=== PATIENT | male | born 1970 | race Caucasian/White ===

== ENCOUNTER 2022-12-10 09:25 | Day surgery (SDC) | payer MEDICARE ==
[2022-12-06 15:35] VITALS: BMI 22.9
[~2022-12-10 09:25] MED LIST: LACTATED RINGERS 1,000 ML IV SCH; LIDOCAINE 1% (10MG/ML) FOR IV START INTRADERMA PRN; ONDANSETRON 4 MG/2 ML VIAL IVP PRN
[2022-12-10 09:47] VITALS: RESP 16; TEMP 98
[2022-12-10] MEDS ORDERED: LIDOCAINE 2% INJ 20 MG/ML (2 ML VIAL) ONE (10:17)
[2022-12-10] MEDS ORDERED: PROPOFOL 10 MG/ML 20 ML VIAL IV ONE (10:17)
--- NOTE | 2022-12-10 10:36 | P.PCN ---
Date of Procedure: 12/10/22 Procedure(s) Performed: Brief history: Patient is a pleasant 52-year-old white male scheduled for an elective upper endoscopy as well as colonoscopy as a part of evaluation of intermittent dysphagia to solids and a history of colon polyps. Procedure performed: Esophagogastroduodenoscopy with biopsy Colonoscopy with biopsy Preoperative diagnosis: Intermittent dysphagia to solids and liquids of 2 years duration History of colon polyps Anesthesia: MAC Procedure: After informed consent was obtained from the patient was brought into the endoscopy unit and IV sedation was administered by anesthesia under continuous monitoring. Initially upper endoscopy was done. The Olympus GF 160 video endoscope was inserted inserted into the mouth and esophagus intubated without any difficulty and was gradually advanced into the stomach and duodenum and carefully examined. The bulb and second part of the duodenum appeared normal. The scope was then withdrawn into the stomach adequately insufflated with air and upon careful examination the antrum had mild gastritis and biopsies were done from this area. Mucosa of the body, cardia and fundus appeared normal. The scope was then withdrawn into the esophagus. The GE junction was located at 40 cm to the incisors. It appeared regular with no erythema erosions or ulcerations. There was no evidence of esophageal stricture. Multiple biopsies were done from the mid and distal esophagus to rule out years of age esophagitis. Rest of the esophagus appeared normal. Patient tolerated the procedure well. At this time the patient continued to remain sedation. Initial digital rectal examination was normal. Olympus CF 160 video colonoscope was then inserted into the rectum and gradually advanced to the cecum without any difficulty. Careful examination was performed as the scope was gradually being withdrawn. The prep was excellent. The cecum had a 5 mm superficial ulceration which was biopsied. Mucosa of the, ascending colon, transverse colon, descending colon, sigmoid colon and rectum appeared normal. Retroflexion was performed in the rectum and small internal hemorrhoids were noted. Patient tolerated the procedure well. Impression: 1. Upper endoscopy revealed mild antral gastritis and small hiatal mild hernia. No evidence of esophageal stricture but possibility of esophageal dysmotility could not be excluded 2. Colonoscopy revealed the 5-6 mm superficial cecal ulcer status post biopsy and small internal hemorrhoids Recommendations: Findings of this examination were discussed with the patient as well as a family. She was advised to follow with the biopsy results. Recommend repeat screening colonoscopy in 10 years. He'll be seen in office in 2 weeks. He still continues to have persistent dysphagia he will be scheduled for esophageal manometry to evaluate for esophageal motility disorder.
[2022-12-10 11:08] VITALS: PULSE 61
[2022-12-10 11:12] VITALS: BP 118/74
== END 2022-12-10 11:30 | disposition home or self-care (01) ==
LOC: ORWHC2ENDO 09:25
PROVIDERS: ATTEND Internal Medicine Gastroenterology
DX: Z12.11 Encounter for screening for malignant neoplasm of colon (principal); K29.50 Unspecified chronic gastritis without bleeding; K20.90 Esophagitis, unspecified without bleeding; K44.9 Diaphragmatic hernia without obstruction or gangrene; I10 Essential (primary) hypertension; E78.5 Hyperlipidemia, unspecified; J44.9 Chronic obstructive pulmonary disease, unspecified; F17.200 Nicotine dependence, unspecified, uncomplicated; F12.10 Cannabis abuse, uncomplicated; Z79.899 Other long term (current) drug therapy; K64.0 First degree hemorrhoids
CPT/HCPCS: 45380; 88305; 43239; J2704; J2001

== ENCOUNTER → 2023-02-07 | Day surgery (SDC) | payer MEDICARE ==
[2023-02-02 10:33] VITALS: BMI 22.2
[2023-02-07 10:40] VITALS: BP 132/73; PULSE 67; RESP 16; TEMP 97.3
== END ==
LOC: ORWHC2ENDO 10:21
PROVIDERS: ATTEND Internal Medicine Gastroenterology
DX: R13.19 Other dysphagia (principal)
CPT/HCPCS: 91010

== ENCOUNTER → 2024-11-15 | Outpatient (CLI) | payer MEDICARE ==
--- NOTE | 2024-11-15 14:21 | XR ---
EXAMINATION TYPE: XR chest 2V DATE OF EXAM: 11/15/2024 2:10 PM COMPARISON: None TECHNIQUE: XR chest 2V Frontal and lateral views of the chest. CLINICAL INDICATION:Male, 54 years old with history of Z18.10 Retained metal fragments MRI CLEARANCE; FINDINGS: Lungs/Pleura: There is no evidence of pleural effusion, focal consolidation, or pneumothorax. Pulmonary vascularity: Unremarkable. Heart/mediastinum: Cardiomediastinal silhouette is unremarkable. Musculoskeletal: No acute osseous pathology. Partial visualization of cervical fusion hardware. There is a 6 mm BB shaped metallic foreign body overlying the left humeral head. Additional 2 mm radiopaqu e foreign body within the right anterior chest wall soft tissues. IMPRESSION: 1. No acute cardiopulmonary disease/process. 2. Couple of small radiopaque foreign bodies identified within the right anterior chest wall soft ti ssues and left humeral head. Additional partially visualized cervical fusion hardware. Patient should be cleared for MRI with metal precautions. [facility], , 11/15/2024 2:19 PM
== END | disposition home or self-care (01) ==
LOC: RADXRMAIN 10:55
PROVIDERS: ATTEND Family Medicine
DX: Z18.10 Retained metal fragments, unspecified (principal)
CPT/HCPCS: 71046

== ENCOUNTER → 2024-11-19 | Outpatient (CLI) | payer MEDICARE ==
--- NOTE | 2024-11-19 09:26 | MR ---
EXAMINATION TYPE: MR lumbar spine wo con DATE OF EXAM: 11/19/2024 7:15 AM COMPARISON: None. CLINICAL INDICATION: Male, 54 years old with history of M47.816 [place], M51.369, M54.16, Lower casi k pain, RLE radiculopathy. TECHNIQUE: Multiplanar, multisequence images of the lumbar spine were acquired without IV contrast. FINDINGS: Vertebral body heights are preserved. There is heterogeneous marrow signal suggesting red marrow hyperplasia. Prominent endplate Schmorl's nodes at L1-L2 with associated marrow edema. There is prominent endplate edema also at L4-L5 related to severe degenerative disc disease. Addition ally towards the right at L3-L4 and posteriorly at the T11 inferior endplate. Fatty matrix hemangioma posteriorly and toward the left and T11. Suspect a left L5 hemisacralization, axial image 3. Conus medullaris is normal. Moderate facet arthropathy mid to lower lumbar spine especially toward the left. Degenerative grade 1 retrolisthesis L3-L4. Trace grade 1 anterolisthesis T10-T11. Remaining alignment is maintained. Moderate multilevel degenerative disc disease with desiccated, narrowed, and bulging discs present va riably throughout. Bulging disks at L2-L3 and L3-L4 impress on to the ventral thecal sac without significant spinal stephanie l stenosis. On the right, there is mild neural foraminal narrowing throughout greatest at L3-L4 and L4-L5. Right intraforaminal disc protrusion at L3-L4 may abut the exiting right L3 nerve root, sagittal image 14. On the left, moderate to severe neuroforaminal stenosis at L4-L5 and mild at L2-L3 and L3-L4. 2.0 cm cortical cyst lateral mid right kidney.. Partially visualized cortical cyst 1.8 cm posterior m id left kidney IMPRESSION: 1. Moderate multilevel degenerative disc disease with edematous Modic type I endplate change associat ed with severe changes at L4-L5 and towards the right at L3-L4. 2. Acute endplate Schmorl's nodes at L1-L2. Possible small early acute endplate Schmorl's node T11 in ferior endplate. No vertebral compression collapse. 3. Suspect a left L5 hemisacralization. Moderate facet arthropathy with a degenerative grade 1 retrol isthesis at L3-L4. 4. Bulging discs do not contribute to any significant spinal canal stenosis. 5. Moderate to severe left neural foraminal stenosis at L4-L5. 6. A right intraforaminal disc protrusion at L3-L4 may abut the exiting right L3 nerve root. Otherwis e, there are variable mild neural foraminal stenoses throughout. [facility], , 11/19/2024 9:24 AM
== END | disposition home or self-care (01) ==
LOC: RADMRIMAIN 06:28
PROVIDERS: ATTEND Family Medicine
DX: M43.16 Spondylolisthesis, lumbar region (principal); M47.26 Other spondylosis with radiculopathy, lumbar region; M48.061 Spinal stenosis, lumbar region without neurogenic claudication; M51.16 Intervertebral disc disorders with radiculopathy, lumbar region
CPT/HCPCS: 72148